=== PATIENT | male | born 1990 | race African-American/Black ===

== ENCOUNTER 2019-07-11 12:10 | Emergency (ER) | payer SELFPAY ==
[~2019-07-11] VITALS: Ht 182.9 cm; Wt 72.1 kg
[2019-07-11 12:15] VITALS: BP 123/56
--- NOTE | 2019-07-11 13:47 | ED.ADGEN ---
Past History Past Medical History: No Pertinent History Past Surgical History: No Surgical History Alcohol Use: Occasionally Drug Use: Marijuana Adult General Chief Complaint Chief Complaint Otalgia HPI HPI Patient is a 28-year-old male who presents with left ear pain for the past 3 months. Patient reports intermittent sharp ear pain. Denies tinnitus decreased her pain or otorrhea. No sinus pain, congestion, or dental pain. Patient has not been using Q-tips denies trauma. He has not sought care prior to today's ED visit.[] Review of Systems Review of Systems Review symptoms as per history of present illness. All other review symptoms are negative. All other systems were reviewed and found to be within normal limits, except as documented in this note. Allergies Allergies Allergies Coded Allergies Type Severity Reaction Last Updated Verified No Known Drug Allergies 07/11/19 No Physical Exam Physical Exam Constitutional: Well developed, well nourished, no acute distress, non-toxic appearance. [] HENT: Normocephalic, atraumatic, bilateral external ears normal, left TM, pain clear, canal partially occluded with cerumen impaction, oropharynx moist, no oral exudates, nose normal. No sinus or facial tenderness[] Eyes: PERRLA, EOMI, conjunctiva normal, no discharge. [] Neck: Normal range of motion, no tenderness, supple, no stridor. [] Cardiovascular:Heart rate regular rhythm, no murmur [] no focal deficits noted. [] Psychologic: Affect normal, judgement normal, mood normal. [] Current Patient Data Vital Signs Vital Signs Date Time Temp Pulse Resp B/P (MAP) Pulse Ox O2 Delivery O2 Flow Rate FiO2 07/11/19 12:15 98.9 67 16 98 Room Air 07/11/19 12:10 123/56 (78) EKG EKG [] Radiology/Procedures Radiology/Procedures [] Course & Med Decision Making Course & Med Decision Making Pertinent Labs and Imaging studies reviewed. (See chart for details) [Partially obscured TM with hard cerumen impaction. Recommendations for antibiotics and cerumen disimpaction with PCP follow-up in one week. Patient verbalizes agreement with discharge plan Final Impression Final Impression [#1 otalgia #2 cerumen impaction Dragon Disclaimer Dragon Disclaimer This electronic medical record was generated, in whole or in part, using a voice recognition dictation system. GRADY LEONARD 4, 2019 13:46
[2019-07-11] MEDS ORDERED: CEPH-264 PO (13:50)
== END 2019-07-11 14:03 | disposition home or self-care (01) ==
LOC: ER 12:10
DX: H92.02 Otalgia, left ear (principal); H61.22 Impacted cerumen, left ear
CPT/HCPCS: 99283

== ENCOUNTER 2022-03-24 22:51 | Emergency (ER) | payer SELFPAY ==
[~2022-03-24] VITALS: Ht 182.9 cm; Wt 69.3 kg
[~2022-03-24 22:51] MED LIST: CEPH-264 PO
[2022-03-24] MEDS ORDERED: IV RINGERS SOLUTION,LACTATED 1,000 ML IV SCH (23:00)
--- NOTE | 2022-03-24 23:32 | PHYS DOC ---
Past History Past Medical History: No Pertinent History Past Surgical History: No Surgical History Alcohol Use: Occasionally Drug Use: Marijuana General Adult EDM: Chief Complaint: CHEST PAIN HPI: HPI: ".. I was watching a basket ball game.. between the [employer] and [employer].... Was smoking some marijuana... But all of a sudden I started getting chest pain here on the left side seem to go into my left shoulder the worst pain is 4 out of 10. But it still present about 3 out of 10./.." Patient is a 31year old male who presents with central chest pain that radiates eights into the left shoulder. Patient denies any trauma. Patient denies any history of previous VT or angina. Patient denies any intake bad food or symptoms of reflux. Patient denies any recent travel or specific ill contacts. Patient denies any history of cardiac disorders. Patient denies any family history of cardiac disorders at his age group. Patient states he is normally healthy. Patient did not get flu vaccination. Patient did not get flu shots. Review of Systems: Review of Systems: Constitutional: Denies fever or chills Eyes: Denies change in visual acuity HENT: Denies nasal congestion or sore throat Respiratory: Denies cough or shortness of breath Cardiovascular: Complains of chest pain GI: Denies abdominal pain, nausea, vomiting, bloody stools or diarrhea : Denies dysuria Musculoskeletal: Denies back pain or joint pain Integument: Denies rash Neurologic: Denies headache, focal weakness or sensory changes Endocrine: Denies polyuria or polydipsia Lymphatic: Denies swollen glands Psychiatric: Denies depression or anxiety Family History: Family History: Noncontributory to presentation Current Medications: Current Meds: Current Medications Medications (Trade) Dose Ordered Sig/Itzel Start Time Stop Time Status Last Admin Dose Admin Lactated Ringer's 1,000 ml @ 1,000 mls/hr Q1H 03/24/22 23:00 03/24/22 23:59 Allergies: Allergies: Allergies Coded Allergies Type Severity Reaction Last Updated Verified No Known Drug Allergies 03/24/22 No Physical Exam: PE: Constitutional: Well developed, well nourished, no acute distress, non-toxic appearance. [] HENT: Normocephalic, atraumatic, bilateral external ears normal, oropharynx moist, no oral exudates, nose normal. [] Eyes: PERRLA, EOMI, conjunctiva normal, no discharge. [] Neck: Normal range of motion, no tenderness, supple, no stridor. [] Cardiovascular: Bradycardia heart rate regular rhythm, no murmur [] bedside monitor shows a bradycardic rhythm. Appears to be sinus. No acute ectopy. Lungs & Thorax: Bilateral breath sounds equal apex of few scattered wheezes Abdomen: Bowel sounds normal, soft, no tenderness, no masses, no pulsatile masses. [] Skin: Warm, dry, no erythema, no rash. [] Back: No tenderness, no CVA tenderness. [] Extremities: No tenderness, no cyanosis, no clubbing, ROM intact, no edema. No cording in legs. Neurologic: Alert and oriented X 3, normal motor function, normal sensory function, no focal deficits noted. [] Psychologic: Affect anxious, judgement normal, mood normal. [] Current Patient Data: Vital Signs: Vital Signs Date Time Temp Pulse Resp B/P (MAP) Pulse Ox O2 Delivery O2 Flow Rate FiO2 03/24/22 22:58 97.7 64 18 121/77 (92) 100 EKG: EKG: My interpretation EKG shows a sinus bradycardia at 56 bpm. No findings acute STEMI of contralateral changes. Time of EKG is 2327 hrs. [] My interpretation second EKG shows a sinus bradycardia at 53 bpm. No acute morphology. Time of EKG is 259 hours no acute interval change from prior EKG. Radiology/Procedures: Radiology/Procedures: [][address] [address] IMAGING REPORT Signed PATIENT: FRANCHESCA SINGH ACCOUNT: [id number] : 1990 LOCATION: ER AGE: 31 SEX: M EXAM STATUS: REG ER ORD. PHYSICIAN: WILLIAMS LUKE MD REASON: Chest pain PROCEDURE: PORTABLE CHEST 1V XR CHEST 1V 03/24/2022 11:08 PM INDICATION: Chest pain COMPARISON: None available TECHNIQUE: Portable frontal view of the chest is provided. FINDINGS: The cardiomediastinal silhouette is within normal limits. Lungs are clear. There are no significant pleural effusions. There is no pulmonary vascular congestion. No pneumothorax. No suspicious osseous abnormality. IMPRESSION: There is no acute cardiopulmonary process. Electronically signed by: Luci Braun MD (03/24/2022 11:59 PM) [facility] DICTATED AND SIGNED BY: LUCI BRAUN MD DATE: 03/24/22 7991 CC: WILLIAMS LUKE MD; PCP,NO ~ Heart Score: C/O Chest Pain: Yes HEART Score for Chest Pain: HEART Score for Chest Pain Response (Comments) Value History Slighlty/Non-Suspicious 0 ECG Normal 0 Age < 45 0 Risk Factors 1 or 2 Risk Factors 1 Troponin < Normal Limit 0 Total 1 Risk Factors: Risk Factors: DM, Current or recent (<one month) smoker, HTN, HLP, family history of CAD, obesity. Risk Scores: Score 0 - 3: 2.5% MACE over next 6 weeks - Discharge Home Score 4 - 6: 20.3% MACE over next 6 weeks - Admit for Clinical Observation Score 7 - 10: 72.7% MACE over next 6 weeks - Early Invasive Strategies Course & Med Decision Making: Course & Med Decision Making Pertinent Labs and Imaging studies reviewed. (See chart for details) recommend patient stop smoking both tobacco and marijuana. Follow-up primary care. Get outpatient stress testing. Return if any concerns. Impression: 1. Chest Pain 2. Tobacco and marijuana use 3. Elevated CK 456 4. Glucose Elevated 140 5. Elevated Lymphocytes 54 Dragon Disclaimer: Dragon Disclaimer: This electronic medical record was generated, in whole or in part, using a voice recognition dictation system. Departure Departure: Referrals: PCP,NO (PCP) WILLIAMS LUKE MD March 24, 2022 23:32
[2022-03-25] LABS: BASO % 0 % (0-3); EOS % 1 % (0-3); HEMATOCRIT 40.3 % (39.0-53.0); HEMOGLOBIN 13.7 g/dL (13.0-17.5); LYMPH # 2.9 x10^3/uL (1.0-4.8); LYMPH % 54 % (24-48); MEAN CORPUSCULAR HEMOGLOBIN 33 pg (25-35); MEAN CORPUSCULAR HGB CONC 34 g/dL (31-37); MEAN CORPUSCULAR VOLUME 97 fL (79-100); MONO # 0.5 x10^3/uL (0.0-1.1); MONO % 9 % (0-9); NEUT % 37 % (31-73); PLATELET COUNT 229 x10^3/uL (140-400); RED BLOOD COUNT 4.15 x10^6/uL (4.30-5.70); RED CELL DISTRIBUTION WIDTH 12.9 % (11.5-14.5); WHITE BLOOD COUNT 5.4 x10^3/uL (4.0-11.0)
--- NOTE | 2022-03-25 00:01 | RAD ---
XR CHEST 1V 03/24/2022 11:08 PM INDICATION: Chest pain COMPARISON: None available TECHNIQUE: Portable frontal view of the chest is provided. FINDINGS: The cardiomediastinal silhouette is within normal limits. Lungs are clear. There are no significant pleural effusions. There is no pulmonary vascular congestion. No pneumothora x. No suspicious osseous abnormality. IMPRESSION: There is no acute cardiopulmonary process. Electronically signed by: Denisha Braun MD (03/24/2022 11:59 PM) [facility]
[2022-03-25 00:10] LABS: CALCIUM 9.2 mg/dL (8.5-10.1); CREATININE 1.1 mg/dL (0.7-1.3); GFR 95.1
[2022-03-25 00:21] LABS: ALBUMIN 3.9 g/dL (3.4-5.0); DIRECT BILIRUBIN 0.1 mg/dL (0.0-0.2); TOTAL BILIRUBIN 0.4 mg/dL (0.2-1.0); TOTAL PROTEIN 6.6 g/dL (6.4-8.2)
[2022-03-25 00:24] LABS: INFLUENZA A PATIENT NEGATIVE (NEGATIVE); INFLUENZA B PATIENT NEGATIVE (NEGATIVE)
[2022-03-25] MEDS ORDERED: KETOROLAC 30 MG/ML VIAL. IVP ONE (01:30)
[2022-03-25 01:39] LABS: BARBITURATES NEG (NEG); BENZODIAZEPINES NEG (NEG); CANNABINOIDS POS (NEG); COCAINE NEG (NEG); METHADONE NEG (NEG); OPIATES NEG (NEG); PHENCYCLIDINE NEG (NEG)
[2022-03-25 01:40] LABS: AMPHETAMINE/METHAMPHETAMINE NEG (NEG)
[2022-03-25 01:45] LABS: BACTERIA,URINE 0 /HPF (0-FEW); CLARITY,URINE CLEAR; COLOR,URINE YELLOW; GLUCOSE,URINE NEG (NEG); NITRITE,URINE NEG (NEG); RBC,URINE OCC /HPF (0-2); UROBILINOGEN,URINE 0.2 mg/dL (0.2 mg/dL); WBC,URINE OCC /HPF (0-4)
[2022-03-25 03:26] VITALS: BP 110/60
== END 2022-03-25 03:43 | disposition home or self-care (01) ==
LOC: ER 22:51
DX: R07.89 Other chest pain (principal); F17.210 Nicotine dependence, cigarettes, uncomplicated; F12.10 Cannabis abuse, uncomplicated; R74.8 Abnormal levels of other serum enzymes; R73.9 Hyperglycemia, unspecified; Z20.822 Contact with and (suspected) exposure to COVID-19
CPT/HCPCS: 36415; 71045; 80048; 80076; 80307; 81001; 82550; 83690; 83735; 83880; 84443; 84484; 85025; 85379; 85610; 85730; 87428; 93005; 96361; 96374; 99285; J1885; J7120